=== PATIENT | female | born 2005 | race Caucasian/White ===

== ENCOUNTER 2024-07-28 17:58 | Emergency (ER) | payer BC, OTHER ==
[2024-07-28] MEDS ORDERED: Acetaminophen 325 MG TAB ONE (18:18)
[2024-07-28] MEDS ORDERED: HYDROcodone/Acetaminophen 10/325 mg Tablet ONE (18:58)
== END 2024-07-28 19:15 | disposition home or self-care (01) ==
LOC: ERS 17:58
DX: S82.832A Other fracture of upper and lower end of left fibula, initial encounter for closed fracture (principal); W21.06XA Struck by volleyball, initial encounter; Y93.68 Activity, volleyball (beach) (court)
CPT/HCPCS: 99283